=== PATIENT | male | born 1980 | race Caucasian/White ===

== ENCOUNTER 2021-01-04 12:03 | Emergency (ER) | payer BC, MEDICAID, SELFPAY ==
[2021-01-04 13:30] VITALS: BP 149/97; PULSE 93; RESP 20; TEMP 36.4; O2SAT 97; BMI 35.6
--- NOTE | 2021-01-04 14:55 | W.ED.FALL ---
HPI - Fall General: Chief Complaint: Fall Stated Complaint: FALL/R HIP PAIN & ARM PAIN Time Seen by Provider: 01/04/21 12:41 History of Present Illness: HPI Narrative: Patient is a 40-year-old male comes to the ED after having a fall. Patient says just prior to arrival he was checking out a property and was standing on their deck which was approximately 2 to 3 feet above the ground. Some wood on deck broke and patient fell through. Denies any head trauma or loss of consciousness. After fall he was having pain in his right hip, right ankle and left elbow. He has a superficial abrasion to left elbow as well. He rates the pain currently a 10 out of 10. Patient is up-to-date on his tetanus. Associated symptoms-after fall: Denies abdominal pain, chest pain, headache(s), hematuria or neck pain Review of Systems Const: Denies: fever(s), chills or fatigue Eyes: Denies: change in vision or eye discomfort ENMT: Denies: throat pain, odynophagia, nasal discharge or nasal congestion Card: Denies: chest pain, palpitations, edema, swelling of feet/ankles, dyspnea on exertion or orthopnea Resp: Denies: dyspnea, productive cough or non-productive cough GI: Denies: abdominal pain, nausea, vomiting, diarrhea, constipation or hematochezia : Denies: flank pain, difficulty urinating, dysuria or hematuria Musc: Reports: extremity pain (left elbow, right hip and right ankle); Denies: neck pain, back pain or extremity swelling Skin/Breast: Reports: new lesions (abrasion to left elbow); Denies: rash Neuro: Denies: headache(s), numbness in extremities or weakness in extremities Physical Exam Const: COMMON NORMALS: no acute distress, patient oriented x3 and alert GENERAL APPEARANCE: cooperative and comfortable HENMT: COMMON NORMALS: normocephalic HEAD & SCALP: normocephalic MOUTH: Normal oral and palatal mucosa present THROAT: posterior oropharynx normal and uvula midline Neck/C-Spine: COMMON NORMALS: supple GENERAL: Yes normal visual inspection Resp: COMMON NORMALS: normal respiratory effort, No retractions, No use of accessory muscles and clear to auscultation bilaterally AUSCULTATION: clear to auscultation bilaterally Cardio: COMMON NORMALS: regular rate, regular rhythm, S1 normal heart sound present, S2 normal heart sound present, No gallops present (Cardio), No clicks present (Cardio), No murmurs present (Cardio) and Peripheral pulses 2+ throughout RATE: regular rate RHYTHM: regular rhythm HEART SOUNDS: S1 normal heart sound present and S2 normal heart sound present PERIPHERAL PULSES: Peripheral pulses 2+ throughout GI: COMMON NORMALS: Normal to inspection, nondistended, normoactive bowel sounds present, Soft to palpation, non-tender and no masses PALPATION: Yes Soft to palpation : COMMON NORMALS: Yes no CVA tenderness BLADDER/KIDNEY EXAM: Yes no CVA tenderness Back/Pelvis: COMMON NORMALS: no CVA tenderness Extremity: COMMON NORMALS: normal to inspection and full ROM OTHER: Patient able to ambulate normally and had no limp. Neuro: COMMON NORMALS: patient oriented x3 and moves all extremities SENSORIUM/ORIENTATION: Yes alert Skin: NARRATIVE SKIN EXAM: Superficial abrasion to left elbow approximately 0.5 cm in size. GENERAL SKIN EXAM: dry skin Course Vital Signs: Vital signs: Vital Signs Temperature 97.6 F 01/04/21 13:30 Pulse Rate 67 01/04/21 17:03 Respiratory Rate 18 01/04/21 17:03 Blood Pressure 148/74 01/04/21 17:03 Pulse Oximetry 98 01/04/21 17:03 MDM - Fall MDM Narrative: Medical decision making narrative: Patient is a 40-year-old with left elbow pain, right hip and ankle pain after a fall. denied any head trauma or LOC. vitals stalbe and exam was benign. xrays of left elbow, right hip and right ankle showed no acute fractures or findings. I discussed with pt that I will send pt home with celebrex for pain and would not d/c with narcotic pain med. Pt was upset that I would not send him home with a narcotic pain med. He told me he will just come back tomorrow to get a different provider to help him get better pain meds. I reiterated w/ pt that either meloxicam, ibuprofen or celebrex is the only pain med he will receive a prescriptioin for today. pt was agitated at discharge, but left without causing any scene. Imaging Data^: Xray Ortho: Attestation: I personally reviewed and interpreted this imaging study as follows: Radiologist's impression: [id number] [facility] [place], [place] [address]RLos ReportSigned Patient: Lior Miller #: [id number]: 1980Acct#:[id number]/Sex: 40 / MADM Date: 01/04/21Loc: ERRoom/Bed:Attending Dr: Ordering Provider/Ordering MD: Sky Patten Date of Service: 01/04/21 Procedure(s): XR ankle RT min 3V* [id number] Accession Number(s): [id number] Report Number: [id number] PROCEDURE INFORMATION: Exam: XR Right Ankle Exam date and time: 01/04/2021 3:00 PM Age: 40 years old Clinical indication: Injury or trauma; Fall; Blunt trauma; Ankle; Right; Additional info: Fall injury with ankle pain TECHNIQUE: Imaging protocol: XR Right ankle. Views: 3 or more views. COMPARISON: No relevant prior studies available. FINDINGS: Bones/joints: Osseous structures are intact. No evidence of fracture. Moderate sized enthesophyte noted at the Achilles insertion. Soft tissues: Normal. XR/XR ankle RT min 3V* [id number] IMPRESSION: No acute findings. Radiation Dose CTDIVOL = (mGy): DLP = (mGy-cm) Dictated By:Navid Khalil DOSigned By:Navid Khalil DOSigned Date/Time:01/04/21 1700DD/ [id number] [facility] [place], [place] [address]AVpw ReportSigned Patient: Lior Miller #: [id number]: 1980Acct#:[id number]/Sex: 40 / MADM Date: 01/04/21Loc: ERRoom/Bed:Attending Dr: Ordering Provider/Ordering MD: Sky Patten Date of Service: 01/04/21 Procedure(s): XR elbow LT min 3V* [id number] Accession Number(s): [id number] Report Number: [id number] PROCEDURE INFORMATION: Exam: XR Left Elbow Exam date and time: 01/04/2021 3:00 PM Age: 40 years old Clinical indication: Injury or trauma; Fall; Blunt trauma (contusions or hematomas); Elbow; Left; Additional info: Fall injury with elbow pain TECHNIQUE: Imaging protocol: XR Left elbow. Views: 3 or more views. COMPARISON: No relevant prior studies available. FINDINGS: Bones/joints: Osseous structures are intact. No evidence of fracture or dislocation. Soft tissues: Normal. XR/XR elbow LT min 3V* [id number] IMPRESSION: No acute findings. Radiation Dose CTDIVOL = (mGy): DLP = (mGy-cm) Dictated By:Navid Khalil DOSigned By:Navid Khalil DOSigned Date/Time:01/04/21 1657DD/ [address] [employer] [address]FIyn ReportSigned Patient: Lior Miller RUnit #: [id number]: [id number]#:[id number]/Sex: 40 / MADM Date: 01/04/21Loc: ERRoom/Bed:Attending Dr: Ordering Provider/Ordering MD: Sky Patten Date of Service: 01/04/21 Procedure(s): XR hip RT 2-3V wo/w pel* [id number] Accession Number(s): [id number] Report Number: [id number] PROCEDURE INFORMATION: Exam: XR Right Hip Exam date and time: 01/04/2021 3:00 PM Age: 40 years old Clinical indication: Injury or trauma; Fall; Blunt trauma (contusions or hematomas); Right; Hip; Additional info: Fall injury with hip pain TECHNIQUE: Imaging protocol: XR Right hip. Views: 2 or 3 views hip with pelvis when performed. COMPARISON: CT abdomen pelvis w con* [id number] 12/20/2014 2:35 PM FINDINGS: Bones/joints: Unremarkable. No acute fracture. Soft tissues: Unremarkable. XR/XR hip RT 2-3V wo/w pel* [id number] IMPRESSION: No acute findings. Radiation Dose CTDIVOL = (mGy): DLP = (mGy-cm) Dictated By:Navid Khalil DOSigned By:Navid Khalil DOSigned Date/Time:01/04/21 1656DD/ 1500 Discharge Plan Discharge Patient Disposition: Home Clinical Impression: Hip pain, right Abrasion of elbow, left Qualifiers: Encounter type: initial encounter Qualified Code(s): S50.312A - Abrasion of left elbow, initial encounter Ankle pain, right Qualifiers: Chronicity: acute Qualified Code(s): M25.571 - Pain in right ankle and joints of right foot Condition: Stable Prescriptions: New Celebrex 100 mg capsule 100 mg PO BID PRN (Reason: pain) Qty: 20 RF: 0 Discharge Orders: Discharge ED (Routine); Ordered 01/04/21 Ordered By: Sky Patten Referrals: Yolanda Rodriguez DO [Primary Care Provider] - Discharge Diet: Regular Discharge Activity: Increase activity as tolerated Activity Restrictions/Additional Instructions: Follow-up with medical provider as directed in 7 to 10 days for reevaluation. Take medications as prescribed. Return to the ER or your medical provider if condition worsens. Please read and understand discharge instructions. Thank you for choosing [facility] for your healthcare needs today. Please realize this is an emergency room and that we are providing you with a medical screening exam and this may not be complete and all inclusive of all the testing and or work up that you may need to determine your ailment or severity of your illness. It is very important that you follow up as instructed or that you return to the Emergency Department should you have concerns or if your condition changes or worsens in any way. 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
--- NOTE | 2021-01-04 15:00 | XRR_ITS ---
PROCEDURE INFORMATION: Exam: XR Right Hip Exam date and time: 01/04/2021 3:00 PM Age: 40 years old Clinical indication: Injury or trauma; Fall; Blunt trauma (contusions or hematomas); Right; Hip; Additional info: Fall injury with hip pain TECHNIQUE: Imaging protocol: XR Right hip. Views: 2 or 3 views hip with pelvis when performed. COMPARISON: CT abdomen pelvis w con* [id number] 12/20/2014 2:35 PM FINDINGS: Bones/joints: Unremarkable. No acute fracture. Soft tissues: Unremarkable. XR/XR hip RT 2-3V wo/w pel* [id number] IMPRESSION: No acute findings. Radiation Dose CTDIVOL = (mGy): DLP = (mGy-cm)
--- NOTE | 2021-01-04 15:00 | XRR_ITS ---
PROCEDURE INFORMATION: Exam: XR Left Elbow Exam date and time: 01/04/2021 3:00 PM Age: 40 years old Clinical indication: Injury or trauma; Fall; Blunt trauma (contusions or hematomas); Elbow; Left; Additional info: Fall injury with elbow pain TECHNIQUE: Imaging protocol: XR Left elbow. Views: 3 or more views. COMPARISON: No relevant prior studies available. FINDINGS: Bones/joints: Osseous structures are intact. No evidence of fracture or dislocation. Soft tissues: Normal. XR/XR elbow LT min 3V* [id number] IMPRESSION: No acute findings. Radiation Dose CTDIVOL = (mGy): DLP = (mGy-cm)
--- NOTE | 2021-01-04 15:00 | XRR_ITS ---
PROCEDURE INFORMATION: Exam: XR Right Ankle Exam date and time: 01/04/2021 3:00 PM Age: 40 years old Clinical indication: Injury or trauma; Fall; Blunt trauma; Ankle; Right; Additional info: Fall injury with ankle pain TECHNIQUE: Imaging protocol: XR Right ankle. Views: 3 or more views. COMPARISON: No relevant prior studies available. FINDINGS: Bones/joints: Osseous structures are intact. No evidence of fracture. Moderate sized enthesophyte noted at the Achilles insertion. Soft tissues: Normal. XR/XR ankle RT min 3V* [id number] IMPRESSION: No acute findings. Radiation Dose CTDIVOL = (mGy): DLP = (mGy-cm)
[2021-01-04] MEDS: HYDROcodone-acetaminophen 7.5-325 mg Tablet 1 TAB PO (15:19)
[2021-01-04 17:03] VITALS: BP 148/74; PULSE 67; RESP 18; O2SAT 98
== END 2021-01-04 16:40 | disposition home or self-care (01) ==
PROVIDERS: Emergency Provider Physician Assistant; PCP Family Medicine
DX: M25.551 Pain in right hip (principal); M25.571 Pain in right ankle and joints of right foot; M79.671 Pain in right foot; M25.522 Pain in left elbow; S50.312A Abrasion of left elbow, initial encounter; W13.0XXA Fall from, out of or through balcony, initial encounter
CPT/HCPCS: 73080; 73502; 73610; 99283

== ENCOUNTER → 2021-03-18 14:21 | Outpatient (BNVA) | payer BC, MEDICAID, SELFPAY | PROVIDERS: PCP Family Medicine; Visit Provider Nurse Practitioner Family | DX: Z20.822 Contact with and (suspected) exposure to COVID-19 (principal) | CPT/HCPCS: 87635 ==

== ENCOUNTER → 2021-03-24 09:52 | Outpatient (BNVA) | payer BC, MEDICAID, SELFPAY | PROVIDERS: PCP Family Medicine; Referring Provider Family Medicine; Visit Provider Anesthesiology Pain Medicine | DX: M47.816 Spondylosis without myelopathy or radiculopathy, lumbar region (principal); M48.061 Spinal stenosis, lumbar region without neurogenic claudication; M48.062 Spinal stenosis, lumbar region with neurogenic claudication; M79.604 Pain in right leg; M79.605 Pain in left leg; F17.210 Nicotine dependence, cigarettes, uncomplicated; Z79.891 Long term (current) use of opiate analgesic | CPT/HCPCS: 99204 ==

== ENCOUNTER → 2021-06-10 10:55 | Outpatient (BNVA) | payer BC, MEDICAID, SELFPAY | PROVIDERS: PCP Family Medicine; Visit Provider Anesthesiology Pain Medicine | DX: M48.062 Spinal stenosis, lumbar region with neurogenic claudication (principal); M47.816 Spondylosis without myelopathy or radiculopathy, lumbar region; M48.061 Spinal stenosis, lumbar region without neurogenic claudication; F17.210 Nicotine dependence, cigarettes, uncomplicated | CPT/HCPCS: 99214 ==

== ENCOUNTER 2021-06-23 07:31 | Emergency (ER) | payer BC, MEDICAID, SELFPAY ==
[2021-06-23 07:37] VITALS: BP 134/96; PULSE 92; RESP 20; O2SAT 94; BMI 30.2
[2021-06-23 07:48] VITALS: TEMP 36.6
--- NOTE | 2021-06-23 08:03 | ED_ITS ---
HPI - Abdominal Pain General: Chief Complaint: Abdominal Pain Stated Complaint: severe abdominal pain/vomiting bile Time Seen by Provider: 06/23/21 07:40 Source: patient Mode of arrival: ambulatory Limitations: no limitations History of Present Illness: 40-year-old male presents emergency room with comp laints of abdominal discomfort most that seems to be epigastric goes up into his left upper quadrant, this is been a intermittent problem but is acutely worse this morning. He states that this also radiates down into the testicles. He has had testicular pain from he says he is actually scheduled for a testicular ultrasound tomorrow. In addition to that he has chronic back pain and is supposed to be seeing the pain clinic later this week for potential epidural for his low back. He is on Dilaudid regularly and a fentanyl patch for lumbar stenosis per his report. He denies any chest pain denies any shortness of breath. This morning he went to work seem to be doing well and then got some a bdominal discomfort and had a large bowel movement which seem normal there is no hematochezia or melena was not acholic. After this he began having worsening abdominal discomfort with nausea and vomiting worsening testicular pain. He has had trouble with his stomach in the past. He was diagnosed with diabetes over 10 years ago. He states he has had some foul eructations last few days. He denies any hematemesis. Has no history of coronary artery disease. No history of nephrolithiasis. MD elicited complaint: abdominal pain Pertinent past history: other (Diabetes mellitus) Onset (ago): hour(s) Location: Epigastric Severity: moderate Quality: cramping Radiation: LUQ and RUQ Migration to: other (Bilaterally into the testicles) Exacerbating factors: bowel movement Relieving factors: nothing Associated Symptoms: Reports GI cramping, nausea and poor appetite; Denies anorexia, belching, bloating, change in bowel habits, change in stool character, chills, coffee ground emesis, constipation, diarrhea, dyspepsia, dysuria, excessive flatus, fever(s), heartburn, hematochezia, hematuria, hematemesis, fecal incontinence, loose stools, melena, syncope and vomiting Review of Systems Const: Denies: fever(s) or chills ENMT: Denies: throat pain, ear or mastoid pain, nasal discharge or nasal congestion Card: Denies: syncope Resp: Denies: dyspnea, productive cough or non-productive cough GI: Reports: nausea and GI cramping; Denies: vomiting, hematemesis, coffee ground emesis, heartburn, diarrhea, constipation, bloating, belching, excessive flatus, fecal incontinence, change in bowel habits, change in stool character, hematochezia or melena : Denies: dysuria or hematuria Skin/Breast: Denies: rash or pruritus PFSH ED PFSH: Medical History (Updated 06/23/21 @ 09:35 by Alexandr Ma DO) Diabetes Facet arthropathy, lumbar Headache Hx of migraines Lumbar stenosis Lumbar stenosis with neurogenic claudication Sleep apnea Family History Other Cancer Diabetes Stroke Social History Smoking and tobacco status: current every day smoker (2 ciagarettes a day) Physical Exam Const: COMMON NORMALS: no acute distress GENERAL APPEARANCE: cooperative and comfortable ORIENTATION/CONSCIOUSNESS: Yes awake, Yes oriented to person, Yes oriented to place and Yes oriented to time HENMT: COMMON NORMALS: normocephalic, atraumatic and hearing grossly normal bilaterally HEAD & SCALP: normocephalic and atraumatic Neck/C-Spine: COMMON NORMALS: no JVD Resp: COMMON NORMALS: normal respiratory effort, No retractions, No use of accessory muscles and clear to auscultation bilaterally AUSCULTATION: clear to auscultation bilaterally Cardio: COMMON NORMALS: no JVD, regular rate, regular rhythm and No murmurs present (Cardio) RATE: regular rate RHYTHM: regular rhythm GI: COMMON NORMALS: Soft to palpation and No hepatosplenomegaly present AUSCULTATION: Yes normoactive bowel sounds PALPATION: Yes Soft to palpation, No Tenderness to palpation present (GI), No Guarding due to palpation present (GI) and Yes No hepatosplenomegaly present Extremity: COMMON NORMALS: normal to inspection, capillary refill normal, no clubbing, cyanosis or edema, no calf tenderness and no pedal edema Neuro: SENSORIUM/ORIENTATION: Yes oriented to person, Yes oriented to place and Yes oriented to time Skin: COMMON NORMALS: no rashes or lesions noted GENERAL SKIN EXAM: no rashes or lesions noted Course Vital Signs: Vital signs: Vital Signs Temperature 97.8 F 06/23/21 07:48 Pulse Rate 81 06/23/21 09:49 Respiratory Rate 16 06/23/21 09:49 Blood Pressure 139/92 06/23/21 09:49 Pulse Oximetry 94 06/23/21 09:49 MDM - Abdominal Pain Medical Decision Making Labs and imaging reviewed. Patient suspected to have gastroparesis probably brought on by his diabetes and exacerbated by his use of chronic narcotics. We will start him on a PPI and start Reglan every 6 hours. Follow-up with primary care doc within the next week return if has any worsening or change symptoms. Repeat exam exam is benign. Medical Records I reviewed the patient's medical records. Lab Data I reviewed the patient's lab results. : 06/23/21 08:24 06/23/21 08:24 Labs/Radiology: Radiology Impressions Abdomen/Pelvis CT 06/23/21 08:05 IMPRESSION: 1. Hepatosplenomegaly with probable hepatic steatosis. 2. Degenerative changes in the lumbar spine with moderate to severe central spinal canal narrowing at a few levels. Consider MRI to further assess if clinically warranted. Laboratory Results WBC 8.0 10^3/uL (4.0-10.0) 06/23/21 08:24 RBC 5.36 10^6/uL (4.1-5.3) H 06/23/21 08:24 Hgb 15.4 g/dL (11.7-16.6) 06/23/21 08:24 Hct 46.3 % (42.0-52.0) 06/23/21 08:24 MCV 86.4 fl (80-94) 06/23/21 08:24 MCH 28.7 pg (28.0-34.0) 06/23/21 08:24 MCHC 33.3 g/dL (30.0-36.0) 06/23/21 08:24 RDW 12.6 % (12.1-15.1) 06/23/21 08:24 Plt Count 219 10^3/cmm (130-400) 06/23/21 08:24 MPV 9.1 fL (7.4-10.4) 06/23/21 08:24 Neut % (Auto) 79.1 % 06/23/21 08:24 Lymph % (Auto) 15.0 % 06/23/21 08:24 [place] % (Auto) 4.5 % 06/23/21 08:24 Eos % (Auto) 0.6 % 06/23/21 08:24 Baso % (Auto) 0.4 % 06/23/21 08:24 Neut # (Auto) 6.32 10^3/uL (1.8-7.7) 06/23/21 08:24 Lymph # (Auto) 1.2 10^3/uL (0.8-4.8) 06/23/21 08:24 [place] # (Auto) 0.4 10^3/uL (0.2-0.9) 06/23/21 08:24 Eos # (Auto) 0.1 10^3/uL (0.0-0.8) 06/23/21 08:24 Baso # (Auto) 0.0 10^3/uL (0.0-0.1) 06/23/21 08:24 Nucleated RBC % (auto) 0 % 06/23/21 08:24 Nucleated RBCs # 0.0 /100WBC 06/23/21 08:24 Sodium 137 mmol/L (136-145) 06/23/21 08:24 Potassium 3.8 mmol/L (3.5-5.1) 06/23/21 08:24 Chloride 104 mmol/L (98-107) 06/23/21 08:24 Carbon Dioxide 22 mmol/L (22-29) 06/23/21 08:24 Anion Gap 14.8 (5-19) 06/23/21 08:24 BUN 16 mg/dL (6-20) 06/23/21 08:24 Creatinine 0.6 mg/dL (0.7-1.2) L 06/23/21 08:24 GFR Calculation 150.0 mL/min (90-130) H 06/23/21 08:24 Glucose 244 mg/dL (65-115) H 06/23/21 08:24 Calculated Osmolality 293 mOsm/kg (285-295) 06/23/21 08:24 Calcium 9.0 mg/dL (8.5-10.5) 06/23/21 08:24 Total Bilirubin 0.5 mg/dL (0.15-1.2) 06/23/21 08:24 AST 16 U/L (0-40) 06/23/21 08:24 ALT 23 U/L (0-41) 06/23/21 08:24 Alkaline Phosphatase 65 IU/L (40-130) 06/23/21 08:24 Total Protein 7.3 g/dL (6.6-8.7) 06/23/21 08:24 Albumin 4.1 g/dL (3.5-5.2) 06/23/21 08:24 Globulin 3.2 g/dL (1.3-4.6) 06/23/21 08:24 Lipase 28 U/L (13-60) 06/23/21 08:24 Urine Color Yellow (Yellow) 06/23/21 08:13 Urine Appearance Clear (CLEAR) 06/23/21 08:13 Urine pH 5 (5-7) 06/23/21 08:13 Ur Specific [place] 1.020 (1.005-1.030) 06/23/21 08:13 Urine Protein Neg (Negative) 06/23/21 08:13 Urine Glucose (UA) 4+ (Normal) H 06/23/21 08:13 Urine Ketones Negative (Negative) 06/23/21 08:13 Urine Blood Neg (Negative) 06/23/21 08:13 Urine Nitrate Negative (Negative) 06/23/21 08:13 Urine Bilirubin Neg (Negative) 06/23/21 08:13 Urine Urobilinogen Norm mg/dL (Negative) 06/23/21 08:13 Ur Leukocyte Esterase Negative (Negative) 06/23/21 08:13 Discharge Plan Discharge Patient Disposition: Home Clinical Impression: Diabetic gastroparesis, Diabetes mellitus Condition: Stable Prescriptions: New Reglan 10 mg tablet 10 mg PO Q6H 14 Days Qty: 56 0RF pantoprazole 40 mg tablet,delayed release (DR/EC) 40 mg PO DAILY 60 Days Qty: 60 0RF No Action Farxiga 10 mg tablet 10 mg PO QAM 0RF celecoxib 200 mg capsule 200 mg PO BID 0RF fentanyl 25 mcg/hr Patch 72 Hour 1 patch TRANSDERMAL Q72H 0RF hydromorphone 4 mg Tablet 4 mg PO BID PRN (Reason: Pain) 0RF Claritin 10 mg Tablet 10 mg PO DAILY PRN (Reason: Allergy Symptoms) 0RF Trulicity 1.5 mg/0.5 mL pen injector 1.5 mg SUBCUT Q7D 0RF Rx Instructions: on baclofen 10 mg tablet 10 mg PO TID PRN (Reason: spasm) 0RF Flonase 50 mcg/actuation Parthenon,Suspension 2 spray INTRANASAL DAILY PRN (Reason: Allergy Symptoms) 0RF Rx Instructions: administer into each nostril Discharge Orders: Discharge ED (Routine); Ordered 06/23/21 Ordered By: Alexandr Ma Referrals: Yolanda Rodriguez DO [Primary Care Provider] - Discharge Diet: Usual diet Discharge Activity: Resume usual activity Patient Instructions: Opioid Safety Activity Restrictions/Additional Instructions: Follow-up with your primary care doctor within the next 7 to 14 days. 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
--- NOTE | 2021-06-23 08:05 | CTR_ITS ---
PROCEDURE INFORMATION: Exam: CT Abdomen And Pelvis With Contrast Exam date and time: 06/23/2021 8:41 AM Age: 40 years old Clinical indication: Lower abdominal pain. TECHNIQUE: Imaging protocol: Computed tomography of the abdomen and pelvis with contrast. Radiation optimization: All CT scans at this facility use at least one of these dose optimization techniques: automated exposure control; mA and/or kV adjustment per patient size (includes targeted exams where dose is matched to clinical indication); or iterative reconstruction. Contrast material: OMNI 300; Contrast volume: 95 ml; Contrast route: INTRAVENOUS (IV); COMPARISON: CT abdomen pelvis w con* [id number] 12/20/2014 2:35 PM RADIATION DOSE METRICS: Total DLP (mGy-cm): 2404.37 FINDINGS: Lungs: Dependent microatelectasis is noted at the lung bases. No pericardial effusion. No hiatal hernia. Liver: The liver is enlarged measuring 22 cm. There is probable hepatic steatosis. Gallbladder and bile ducts: The gallbladder is unremarkable. Pancreas: The pancreas is unremarkable. Spleen: The spleen is enlarged measuring 15 cm. Adrenal glands: The adrenal glands are unremarkable. Kidneys and ureters: A subcentimeter right renal hypodensity is too small to accurately characterize and requires no follow-up. Stomach and bowel: The stomach and small bowel are unremarkable. The colon is unremarkable. Appendix: The appendix is unremarkable. Intraperitoneal space: No free intraperitoneal air is seen. Arteries: No abdominal aortic aneurysm. Lymph nodes: No retroperitoneal lymphadenopathy. Urinary bladder: The bladder is unremarkable. Reproductive: The prostate measures 4.0 x 4.5 cm. Bones/joints: Probable subtrochanteric intraosseous lipoma on the left. No acute fracture is identified. Degenerative changes in the lumbar spine with moderate to severe central spinal canal narrowing at a few levels. Consider MRI to further assess if clinically warranted. Soft tissues: Small fat containing umbilical hernia. CT/CT abdomen pelvis w con* [id number] IMPRESSION: 1. Hepatosplenomegaly with probable hepatic steatosis. 2. Degenerative changes in the lumbar spine with moderate to severe central spinal canal narrowing at a few levels. Consider MRI to further assess if clinically warranted.
--- NOTE | 2021-06-23 08:05 | ECG_ITS ---
[facility] Test Date: 2021-06-23 Pat Name: Lior Miller Department: Room: Gender: Male Master Ship: : 1980 Requested By: Alexandr Mayorga Order Number: [id number] Rima MD: Bailey Rebollar M.D. Measurements Intervals [place] Rate: 84 P: 17 GA: 143 QRS: 17 QRSD: 114 T: 5 QT: 366 QTc: 435 Interpretive Statements SINUS RHYTHM INCOMPLETE RIGHT BUNDLE BRANCH BLOCK [90+ ms QRS DURATION, TERMINAL R IN V1/V2, 40+ ms S IN I/aVL/V4/V5/V6] Compared to ECG 10/16/2014 18:18:33 Incomplete right bundle-branch block now present T-wave abnormality no longer present Electronically Signed On 06-24-2021 7:28:34 CDT by Bailey Rebollar M.D. [email or web address]
[2021-06-23 08:18] LABS: Add Urine Microscopic? NO; Charge for UA Resulting for Rev
[2021-06-23] MEDS: lactated ringers 1,000 ML 999 ML IV (08:20)
[2021-06-23] MEDS: ondansetron 2 mg/ML SDV 2 mL 4 MG IVP (08:20)
[2021-06-23 08:24] LABS: Bilirubin Urine Neg (Negative); Blood Urine Neg (Negative); Glucose Urine UA 4+ (Normal); Ketones Urine Negative (Negative); Leukocyte Esterase Urine Negative (Negative); Nitrate Urine Negative (Negative); Protein Urine Neg (Negative); Urine Appearance Clear (CLEAR); Urine Color Yellow (Yellow); Urobilinogen Urine Norm (Negative); pH Urine 5 (5-7)
[2021-06-23 08:34] LABS: Basophils % 0.4 %; Eosinophils # 0.1 10^3/uL (0.0-0.8); Eosinophils % 0.6 %; Hematocrit 46.3 % (42.0-52.0); Hemoglobin 15.4 g/dL (11.7-16.6); Lymphocytes # 1.2 10^3/uL (0.8-4.8); Mean Corpuscular HGB Conc 33.3 g/dL (30.0-36.0); Mean Corpuscular Hemoglobin 28.7 pg (28.0-34.0); Mean Corpuscular Volume 86.4 fl (80-94); Mean Platelet Volume 9.1 fL (7.4-10.4); Monocytes # 0.4 10^3/uL (0.2-0.9); Monocytes % 4.5 %; Neutrophils # 6.32 10^3/uL (1.8-7.7); Neutrophils % 79.1 %; Nucleated Red Blood Cells % 0 %; Platelet Count 219 10^3/cmm (130-400); Red Blood Count 5.36 10^6/uL (4.1-5.3); Red Cell Distribution Width 12.6 % (12.1-15.1)
[2021-06-23] MEDS: iohexol 300 mg/mL 100 mL Btl IV (08:41)
[2021-06-23 08:54] LABS: Alanine Aminotransferase 23 U/L (0-41); Albumin Level 4.1 g/dL (3.5-5.2); Alkaline Phosphatase 65 IU/L (40-130); Anion Gap 14.8 (5-19); Aspartate Amino Transferase 16 U/L (0-40); Blood Urea Nitrogen 16 mg/dL (6-20); Carbon Dioxide 22 mmol/L (22-29); Chloride 104 mmol/L (98-107); Globulin 3.2 g/dL (1.3-4.6); Glucose 244 mg/dL (65-115); Lipase 28 U/L (13-60); Osmolality Calculated 293 mOsm/kg (285-295); Potassium 3.8 mmol/L (3.5-5.1); Sodium 137 mmol/L (136-145); Total Bilirubin 0.5 mg/dL (0.15-1.2); Total Protein 7.3 g/dL (6.6-8.7)
[2021-06-23 09:49] VITALS: BP 139/92; PULSE 81; RESP 16; O2SAT 94
== END 2021-06-23 09:53 | disposition home or self-care (01) ==
PROVIDERS: Emergency Provider Family Medicine; PCP Family Medicine
DX: E11.43 Type 2 diabetes mellitus with diabetic autonomic (poly)neuropathy (principal); K31.84 Gastroparesis; R11.0 Nausea; F17.210 Nicotine dependence, cigarettes, uncomplicated; Z79.899 Other long term (current) drug therapy; Z79.891 Long term (current) use of opiate analgesic
CPT/HCPCS: 74177; 80053; 81003; 83690; 85025; 93005; 96361; 96374; 99284; J2405; Q9967

== ENCOUNTER → 2021-07-08 12:48 | Outpatient (BNVA) | payer BC, MEDICAID, SELFPAY | PROVIDERS: PCP Family Medicine; Visit Provider Anesthesiology Pain Medicine | DX: F17.210 Nicotine dependence, cigarettes, uncomplicated (principal); M54.16 Radiculopathy, lumbar region | CPT/HCPCS: 62323; J1040; J3490 ==

== ENCOUNTER 2023-08-27 19:43 | Emergency (ER) | payer SELFPAY ==
--- NOTE | 2023-08-27 19:42 | ECG_ITS ---
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 Measurements Intervals Stanley Rate: 152 P: 0 GA: 0 QRS: -4 QRSD: 105 T: 63 QT: 307 QTc: 489 Interpretive Statements ATRIAL FLUTTER/TACHYCARDIA WITH RAPID VENTRICULAR RESPONSE INCOMPLETE RIGHT BUNDLE BRANCH BLOCK [90+ ms QRS DURATION, TERMINAL R IN V1/V2, 40+ ms S IN I/aVL/V4/V5/V6] NONSPECIFIC ST & T-WAVE ABNORMALITY CRITICAL TEST RESULT Compared to ECG 06/23/2021 08:11:09 T-wave abnormality now present Sinus rhythm no longer present Electronically Signed On 08-28-2023 8:10:09 CDT by Eduardo Andrew M.D. [id number] f
[2023-08-27 19:49] VITALS: BP 199/101; PULSE 153; RESP 18; TEMP 37.7; O2SAT 91
[2023-08-27 20:00] VITALS: BP 200/94; PULSE 141; RESP 16
--- NOTE | 2023-08-27 20:07 | PC.NURSE ---
Wearing gloves- fentanyl patch picked up and disposed of with witness Radha MAGAÑA.
--- NOTE | 2023-08-27 20:29 | ED_ITS ---
HPI - Chest Pain General: Chief Complaint: Chest Pain Stated Complaint: Chest pain Time Seen by Provider: 08/27/23 19:56 History of Present Illness: 42-year-old male presents emerged part w ith his present chief complaint of opiate withdrawal patient endorses he has been snorting his medications including oxycodone provided by his primary care doctor due to his chronic back problems. Patient apparently has had chronic pain issues with his back he reports he is lying on fentanyl patch as well as oxycodone as well as hydrocodone he reports not taking them as prescribed which most recently crushed up the fat normal and/or oxycodone and snuff that a couple of days ago patient does not endorse any other drugs besides THC he presents today as he is demanding morphine for his pain control or he will upon direct questioning patient does not report any homicidal suicidal thoughts or ideations. Patient does not report any known history of underlying cardiac issues or any other associated issues. Per the patient's just prior to arrival patient took several Gummies of THC which invoked anxiety reaction and him which prompted him to come to the ER for further assessment and management Associated symptoms: Reports fever(s) and palpitations; Deny abdominal pain, dyspnea, nausea or vomiting Review of Systems General: Reports: 10 or more systems reviewed and unremarkable except in HPI and below Const: Reports: fever(s), chills, body aches, change in appetite, fatigue and malaise Eyes: Denies: change in vision or blurry vision Card: Reports: chest pain and palpitations Resp: Denies: dyspnea or productive cough GI: Denies: abdominal pain, nausea or vomiting : Denies: flank pain Musc: Denies: extremity pain or extremity swelling Skin/Breast: Denies: rash or pruritus Neuro: Denies: headache(s) Psych: Reports: anxiety, depression, mood swings and panic attacks Brian/Lymph: Denies: easy bleeding All/Imm: Denies: urticaria, throat swelling or facial swelling PFSH ED PFSH: Medical History Diabetes Hx of migraines Sleep apnea Headache Lumbar stenosis with neurogenic claudication Lumbar stenosis Facet arthropathy, lumbar Family History Other Cancer Diabetes Stroke Social History Smoking and tobacco/nicotine status: current every day tobacco/nicotine user (2 ciagarettes a day) Physical Exam Narrative: EXAM NARRATIVE: On exam patient appears quite anxious and is tachycardic Const: COMMON NORMALS: no acute distress, patient oriented x3 and healthy appearing HENMT: COMMON NORMALS: normocephalic and atraumatic HEAD & SCALP: normocephalic and atraumatic Eye: COMMON NORMALS: Equal, round and reactive pupils present and EOMs intact bilaterally PUPIL: Yes Equal, round and reactive pupils present Neck/C-Spine: COMMON NORMALS: full ROM, supple and no JVD Lymph: LYMPHATIC: no lymphadenopathy noted Chest: COMMONS NORMALS: normal inspection of the chest and normal palpation of entire chest wall Resp: COMMON NORMALS: normal respiratory effort, No retractions and clear to auscultation bilaterally EFFORT & INSPECTION: Yes able to speak in complete sentences and Yes symmetric chest movement AUSCULTATION: clear to auscultation bilaterally Cardio: COMMON NORMALS: no JVD and regular rate; negative for regular rhythm (Sinus tachycardia as well as questionable atrial flutter rate of 150 on mon) RATE: regular rate RHYTHM: abnormal rhythm (Sinus tachycardia as well as questionable atrial flutter rate of 150 on mon) GI: COMMON NORMALS: Normal to inspection, nondistended, normoactive bowel sounds present, Soft to palpation and non-tender INSPECTION: Yes normal to inspection PALPATION: Yes Soft to palpation : COMMON NORMALS: Yes no CVA tenderness BLADDER/KIDNEY EXAM: Yes no CVA tenderness Back/Pelvis: COMMON NORMALS: no CVA tenderness Extremity: COMMON NORMALS: normal to inspection and full ROM Neuro: COMMON NORMALS: patient oriented x3, CN's II-XII intact bilaterally, moves all extremities and no focal motor deficits Psych: COMMON NORMALS: mental status grossly normal, Normal thought process present, cooperative and normal affect THOUGHT PROCESS: Normal thought process present Skin: COMMON NORMALS: no rashes or lesions noted GENERAL SKIN EXAM: no rashes or lesions noted Course Vital Signs: Vital signs: Vital Signs Temperature 99.9 F H 08/27/23 19:49 Pulse Rate 153 H 08/27/23 19:49 Respiratory Rate 18 08/27/23 19:49 Blood Pressure 199/101 08/27/23 19:49 Pulse Oximetry 91 08/27/23 19:49 MDM - Chest Pain Medical Decision Making Spoke to the patient and present at length I declined providing the patient morphine as he reported he would not help his symptoms out I did offer him additional medications for his heart in particular as he was found to be in atrial flutter that he has declined I offered an IV as well as additional lab work as well as medications for his associated withdrawal symptoms. I also offered referral to psychiatry and therapy which the patient declined after speaking to the patient at length after refusing to provide him morphine the patient elected to leave the emergency room department to AGAINST MEDICAL ADVICE I did speak to the patient's at length in which that when the patient's anxiety wears off as he if he so chooses he can return to the ER for further evaluation and management patient was observed leaving the ER no obvious acute distress by nursing staff. No radiology studies performed this visit Discharge Plan Discharge Patient Disposition: Left Against Medical Advice Clinical Impression: Chest pain, Opiate withdrawal, Anxiety Condition: Stable Prescriptions: No Action Farxiga 10 mg tablet 10 mg PO QAM ibuprofen 200 mg tablet 200 mg PO Q6H PRN methylprednisolone acetate [Depo-Medrol] 80 mg/mL suspension 80 mg Infiltration ONCE Qty: 1 0RF bupivacaine (PF) 0.25 % (2.5 mg/mL) solution 2 ml Infiltration ONCE Qty: 1 0RF celecoxib 200 mg capsule 200 mg PO BID fentanyl 25 mcg/hr Patch 72 Hour 1 patch TRANSDERMAL Q72H hydromorphone 4 mg Tablet 4 mg PO BID PRN (Reason: Pain) Claritin 10 mg Tablet 10 mg PO DAILY PRN (Reason: Allergy Symptoms) Trulicity 1.5 mg/0.5 mL pen injector 1.5 mg SUBCUT Q7D Rx Instructions: on baclofen 10 mg tablet 10 mg PO TID PRN (Reason: spasm) Flonase 50 mcg/actuation [place],Suspension 2 spray INTRANASAL DAILY PRN (Reason: Allergy Symptoms) Rx Instructions: administer into each nostril Referrals: Yolanda Rodriguez DO [Primary Care Provider] - Coding Level of Care Code ED Cutting Machine Operator Helper for Addis Valente
--- NOTE | 2023-08-27 20:29 | PC.NURSE ---
PT UNCOOPERATIVE AND DEMANDING PAIN MEDICATION
== END 2023-08-27 20:19 | disposition left against medical advice (07) ==
PROVIDERS: Emergency Provider Emergency Medicine; PCP Family Medicine
DX: R07.9 Chest pain, unspecified (principal); F41.9 Anxiety disorder, unspecified; F11.23 Opioid dependence with withdrawal; Z79.85 Long-term (current) use of injectable non-insulin antidiabetic drugs; F17.210 Nicotine dependence, cigarettes, uncomplicated; E11.9 Type 2 diabetes mellitus without complications
CPT/HCPCS: 93005; 99283

== ENCOUNTER 2023-08-28 14:41 | Emergency (ER) | payer SELFPAY ==
[2023-08-28 14:46] VITALS: BP 147/85; PULSE 86; RESP 17; TEMP 37.1; O2SAT 96; BMI 29.0
--- NOTE | 2023-08-28 15:24 | ED_ITS ---
HPI - General Adult General: Chief complaint: General Medical Stated complaint: withdrawal, sweating, shaking, etc Time Seen by Provider: 08/28/23 14:51 Source: patient Mode of arrival: ambulatory Limitations: no limitations History of Present Illness: Patient is a 42-year-old male presenting to the emergency department complaining of withdrawal symptoms onset 2 days. Patient came to the emergency department yesterday as he was having a reported reaction to THC Gummies that he was taking for symptoms of irritability, restlessness, tremors, and anxiety. He states he has a longstanding history of opiate abuse, with his last opiate being yesterday. He currently is attempting to cold turkey stop taking opiates, and has appointment with his primary care for resources for weaning off of these op iates. He did leave AGAINST MEDICAL ADVICE yesterday, and arrives today stating that he just wants something for his symptoms that have been constant since yesterday. He is denying any GI symptoms, chest pain, breathing difficulties, or any other neurological symptoms. MD complaint: Withdrawal symptoms Onset (ago): day(s) Associated symptoms: Deny chest pain, dyspnea, headache(s), nausea, rash, palpitations or vomiting Treatments prior to arrival: none Review of Systems General: Reports: 10 or more systems reviewed and unremarkable except in HPI and below Const: Denies: fever(s), chills or fatigue Eyes: Denies: change in vision ENMT: Denies: throat pain, ear or mastoid pain or nasal discharge Card: Denies: chest pain, palpitations, swelling of feet/ankles or lightheadedness Resp: Denies: dyspnea, productive cough or wheezing GI: Denies: abdominal pain, nausea, vomiting, diarrhea or constipation : Denies: flank pain, difficulty urinating, dysuria or urinary frequency Musc: Denies: neck pain, back pain or joint pain Skin/Breast: Denies: rash Neuro: Reports: other (Tremors); Denies: headache(s), numbness in extremities or weakness in extremities Psych: Reports: anxiety, sleeping less and irritability PFSH ED PFSH: Medical History Diabetes Hx of migraines Sleep apnea Headache Lumbar stenosis with neurogenic claudication Lumbar stenosis Facet arthropathy, lumbar Family History Other Cancer Diabetes Stroke Social History Smoking and tobacco/nicotine status: current every day tobacco/nicotine user (2 ciagarettes a day) Physical Exam Const: COMMON NORMALS: average body habitus, patient oriented x3, no limitations and alert GENERAL APPEARANCE: cooperative and anxious ORIENTATION/CONSCIOUSNESS: Yes awake OTHER: Tremulous HENMT: COMMON NORMALS: normocephalic and atraumatic HEAD & SCALP: normocephalic and atraumatic Eye: COMMON NORMALS: Equal, round and reactive pupils present, EOMs intact bilaterally and conjunctivae normal CONJUNCTIVA: Yes conjunctivae normal PUPIL: Yes Equal, round and reactive pupils present Neck/C-Spine: COMMON NORMALS: full ROM Resp: COMMON NORMALS: normal respiratory effort, No retractions, No use of accessory muscles and clear to auscultation bilaterally AUSCULTATION: clear to auscultation bilaterally Cardio: COMMON NORMALS: regular rate, regular rhythm, S1 normal heart sound present, S2 normal heart sound present, No gallops present (Cardio), No clicks present (Cardio) and No murmurs present (Cardio) RATE: regular rate RHYTHM: regular rhythm HEART SOUNDS: S1 normal heart sound present and S2 normal heart sound present GI: COMMON NORMALS: Normal to inspection, nondistended, normoactive bowel sounds present, Soft to palpation and non-tender PALPATION: Yes Soft to palpation Extremity: COMMON NORMALS: normal to inspection, full ROM and capillary refill normal Neuro: COMMON NORMALS: patient oriented x3, CN's II-XII intact bilaterally, moves all extremities and no sensory deficits noted SENSORIUM/ORIENTATION: Yes alert SPEECH: speech normal GAIT: Yes Normal gait present MOTOR EXAM: 5/5 motor strength present throughout, Pronator motor function not present, no asterixis and Motor fasciculations not present Psych: COMMON NORMALS: mental status grossly normal and Normal thought process present THOUGHT PROCESS: Normal thought process present Skin: COMMON NORMALS: no rashes or lesions noted GENERAL SKIN EXAM: no rashes or lesions noted Course Vital Signs: Vital signs: Vital Signs Temperature 98.8 F 08/28/23 14:46 Pulse Rate 86 08/28/23 14:46 Respiratory Rate 17 08/28/23 14:46 Blood Pressure 147/85 06/22/24 14:46 Pulse Oximetry 96 08/28/23 14:46 Oxygen Delivery Me thod Room Air 08/28/23 14:46 MDM - General Adult Medical Decision Making Patient presented with requests for medication for his opiate withdrawal. Was seen yesterday in the emergency department but left AGAINST MEDICAL ADVICE. He has no new symptoms to report other than his irritability/restlessness/anxiety that he was having yesterday. He currently has appointment scheduled with primary care to discuss options for weaning off of opiates. Last opiate was yesterday morning. He is given 1 mg of Ativan p.o. here in the emergency department, and prescription is sent to pharmacy for him to take that will lead up to his appointment with primary care. He had no complaints of chest pain or neurological symptoms that would warrant lab testing or imaging at this time. I discussed this patient's care with supervising ED physician, Dr. Evangelista, who agrees with disposition of patient. Reasons to return were discussed with patient and family in the room. No radiology studies performed this visit Discharge Plan Discharge Patient Disposition: Home Clinical Impression: Opiate withdrawal Condition: Stable Prescriptions: New Ativan 1 mg tablet 1 mg PO Q6H Qty: 30 0RF No Action Farxiga 10 mg tablet 10 mg PO QAM ibuprofen 200 mg tablet 200 mg PO Q6H PRN methylprednisolone acetate [Depo-Medrol] 80 mg/mL suspension 80 mg Infiltration ONCE Qty: 1 0RF bupivacaine (PF) 0.25 % (2.5 mg/mL) solution 2 ml Infiltration ONCE Qty: 1 0RF celecoxib 200 mg capsule 200 mg PO BID fentanyl 25 mcg/hr Patch 72 Hour 1 patch TRANSDERMAL Q72H hydromorphone 4 mg Tablet 4 mg PO BID PRN (Reason: Pain) Claritin 10 mg Tablet 10 mg PO DAILY PRN (Reason: Allergy Symptoms) Trulicity 1.5 mg/0.5 mL pen injector 1.5 mg SUBCUT Q7D Rx Instructions: on baclofen 10 mg tablet 10 mg PO TID PRN (Reason: spasm) Flonase 50 mcg/actuation [place],Suspension 2 spray INTRANASAL DAILY PRN (Reason: Allergy Symptoms) Rx Instructions: administer into each nostril Discharge Orders: Discharge ED (Routine); Ordered 08/28/23 Ordered By: Sulaiman Blackmon Referrals: Yolanda Rodriguez DO [Primary Care Provider] - Discharge Diet: Usual diet Discharge Activity: Increase activity as tolerated Patient Instructions: Opioid Withdrawal (ED) Activity Restrictions/Additional Instructions: Take Ativan as prescribed. Follow-up with your primary care provider for further outpatient management. If you develop any new or concerning symptoms, please return to the emergency department as discussed. Imodium for any gastrointestinal issues. Coding Level of Care Code ED Electric Razor Assembler for Addis Valente
[2023-08-28] MEDS: LORazepam 1 mg Tablet PO (15:28)
[2023-08-28 15:38] VITALS: BP 138/86; PULSE 84; RESP 16; TEMP 37.1; O2SAT 97
== END 2023-08-28 15:30 | disposition home or self-care (01) ==
PROVIDERS: Emergency Provider Physician Assistant; PCP Family Medicine
DX: F11.23 Opioid dependence with withdrawal (principal); Z79.85 Long-term (current) use of injectable non-insulin antidiabetic drugs; E11.9 Type 2 diabetes mellitus without complications; F17.210 Nicotine dependence, cigarettes, uncomplicated
CPT/HCPCS: 99283

== ENCOUNTER 2023-08-30 11:53 | Emergency (ER) | payer SELFPAY ==
[2023-08-30 12:08] VITALS: BP 150/95; PULSE 88; RESP 20; TEMP 36.9; O2SAT 97; BMI 29.0
--- NOTE | 2023-08-30 12:19 | ED_ITS ---
HPI - General Adult General: Chief complaint: Psychiatric Symptoms Stated complaint: shaking, withdrawal, sent by [facility] Time Seen by Provider: 08/30/23 12:10 Source: patient Mode of arrival: ambulatory Limitations: no limitations History of Present Illness: Patient is a 42-year-old male presents to ED today with complaints of opiate withdrawal. Patient has a longstanding history of opiate use/abuse. He reportedly has not had opiates in over a week now. Patient was seen at our facility on 08/26 left AGAINST MEDICAL ADVICE. He returned on 08/27. Patient was treated with Ativan and given a prescription for this. Feels like this helped temporarily. He states his symptoms now are continued anxiety, feeling jittery on the inside, diarrhea, and muscle pains. Onset (ago): day(s) Pain Consistency: constant Exacerbating factors: other (opiate withdrawal) Associated symptoms: Reports nausea; Deny chest pain, dyspnea, headache(s), malaise, rash, palpitations or syncope Treatments prior to arrival: other (States he took Imodium and Zofran) Review of Systems Const: Reports: body aches; Denies: fever(s), chills, fatigue or malaise Eyes: Denies: change in vision, blurry vision, photophobia, floaters or seeing flashes Card: Denies: chest pain, palpitations, irregular heart rhythm, lightheadedness or syncope Resp: Denies: dyspnea GI: Reports: nausea and diarrhea Musc: Reports: other (reporting muscle pains/aches) Skin/Breast: Denies: rash Neuro: Denies: headache(s), numbness in extremities, weakness in extremities, sensory changes or dizziness Psych: Reports: anxiety; Denies: suicidal ideation or homicidal ideation PFS ED PFSH: Medical History Diabetes Hx of migraines Sleep apnea Headache Lumbar stenosis with neurogenic claudication Lumbar stenosis Facet arthropathy, lumbar Family History Other Cancer Diabetes Stroke Social History Smoking and tobacco/nicotine status: current every day tobacco/nicotine user (2 ciagarettes a day) Physical Exam Const: COMMON NORMALS: patient oriented x3, alert and well nourished GENERAL APPEARANCE: cooperative and anxious ORIENTATION/CONSCIOUSNESS: Yes awake, Yes oriented to person, Yes oriented to place and Yes oriented to time Neck/C-Spine: COMMON NORMALS: full ROM, no lymphadenopathy, supple and no meningeal signs Chest: COMMONS NORMALS: normal inspection of the chest Resp: COMMON NORMALS: normal respiratory effort and clear to auscultation bilaterally AUSCULTATION: clear to auscultation bilaterally Cardio: COMMON NORMALS: regular rate and regular rhythm RATE: regular rate RHYTHM: regular rhythm GI: COMMON NORMALS: Normal to inspection, nondistended, normoactive bowel sounds present, Soft to palpation, No hepatosplenomegaly present and no masses INSPECTION: Yes normal to inspection AUSCULTATION: Yes normoactive bowel sounds PALPATION: Yes Soft to palpation, Yes Tenderness to palpation present (GI) (mild-non surgical), No Guarding due to palpation present (GI), No Rigid due to palpation and Yes No hepatosplenomegaly present : COMMON NORMALS: Yes no CVA tenderness BLADDER/KIDNEY EXAM: Yes no CVA tenderness Back/Pelvis: COMMON NORMALS: no CVA tenderness and thoracic and lumbar spine normal to inspection Extremity: COMMON NORMALS: normal to inspection GENERAL: Yes normal exam except as noted Neuro: LILLY COMA SCALE: document GCS findings Lilly coma scale eye opening: Spontaneous Lilly coma scale verbal response: Orientated Lilly coma scale motor response: [place]bey commands [place] coma scale total score: 15 COMMON NORMALS: patient oriented x3, CN's II-XII intact bilaterally, moves all extremities, no focal motor deficits, no sensory deficits noted and gait normal SENSORIUM/ORIENTATION: Yes alert, Yes oriented to person, Yes oriented to place and Yes oriented to time MENINGEAL SIGNS: Yes no meningeal signs MOTOR EXAM: 5/5 motor strength present throughout Skin: COMMON NORMALS: no rashes or lesions noted GENERAL SKIN EXAM: no rashes or lesions noted Course Vital Signs: Vital signs: Vital Signs Temperature 98.5 F 08/30/23 12:08 Pulse Rate 88 08/30/23 12:08 Respiratory Rate 20 H 08/30/23 12:08 Blood Pressure 174/95 08/30/23 14:59 Pulse Oximetry 97 08/30/23 12:08 Oxygen Delivery Me thod Room Air 08/30/23 12:08 [facility] - General Adult Medical Decision Making Patient has had difficulty controlling his opiate withdrawal symptoms despite many medications. He is asking for Naltrexone, Suboxone, Methadone. When asked about his last opiate use he states he just removed his last Fentanyl patch on Wednesday (states it was 3 days past due/old). I explained the patient that we do not prescribe Suboxone or Methadone from the ED. Naltrexone usually requires an opiate free period for 7 to 14 days. I did discuss case with Dr. Springer who recommended placing patient on Seroquel and Clonidine. [facility] in [place] dispenses Suboxone and Methadone and does not require a referral. They have already closed today. He was given their address and phone number as well as their hours. Medical Records I reviewed the patient's medical records. No radiology studies performed this visit Discharge Plan Discharge Patient Disposition: Home Clinical Impression: Opiate withdrawal Condition: Stable Prescriptions: New Seroquel 25 mg tablet 25 - 50 mg PO .q4-6 Qty: 30 0RF Rx Instructions: until symptoms of withdrawal controlled or stopped clonidine HCl 0.1 mg tablet 0.1 mg PO Q6H PRN (Reason: withdrawal symptoms) Qty: 12 0RF No Action Farxiga 10 mg tablet 10 mg PO QAM ibuprofen 200 mg tablet 200 mg PO Q6H PRN (Reason: Pain) sildenafil 50 mg tablet 50 mg PO DAILY PRN (Reason: Erectile Dysfunction) ondansetron 8 mg tablet,disintegrating 8 mg PO Q8H PRN (Reason: Nausea And Vomiting) pantoprazole 40 mg tablet,delayed release (DR/EC) 40 mg PO DAILY testosterone cypionate 200 mg/mL oil 200 mg IM Q14D duloxetine 60 mg capsule,delayed release(DR/EC) 60 mg PO BID celecoxib 200 mg capsule 200 mg PO BID loratadine [Claritin] 10 mg Tablet 10 mg PO DAILY PRN (Reason: Allergy Symptoms) Trulicity 1.5 mg/0.5 mL pen injector 1.5 mg SUBCUT Q7D Rx Instructions: WEDNESDAY baclofen 10 mg tablet 10 mg PO TID PRN (Reason: spasm) lorazepam [Ativan] 1 mg tablet 1 mg PO Q6H Qty: 30 0RF Discharge Orders: Discharge ED (Routine); Ordered 08/30/23 Ordered By: Courtney Borjas Referrals: Yolanda Rodriguez DO [Primary Care Provider] - Patient Instructions: Opioid Withdrawal (ED), Narcotic Withdrawal (ED) Activity Restrictions/Additional Instructions: As discussed you may show up at the [facility] tomorrow at 6 AM when they open. Their address is [address] Their phone number is [phone]. They can start Suboxone/Methadone if indicated. I am placing you on 2 different medications are recommended by our inpatient psychiatrist to help with your opiate withdrawal symptoms. As we discussed the Clonidine can rapidly lower blood pressure. I would like you to take your blood pressure prior to administering 1 of these medications. If blood pressure is below 120/80 I do not want you taking this medication. Coding Level of Care Code ED Guillotine Operator for Addis Valente
[2023-08-30] MEDS: ketorolac 30 mg/mL INJ IVP (12:58)
[2023-08-30] MEDS: dicyclomine 10 mg Capsule PO (12:58)
[2023-08-30] MEDS: LORazepam 2 mg/mL INJ 10 mL MDV 1 MG IVP ×2 (12:59→16:03)
[2023-08-30] MEDS: orphenadrine 30 mg/mL Inj 2 mL 60 MG IVP (12:59)
[2023-08-30] MEDS: loperamide 2 mg Capsule 4 MG PO (13:37)
[2023-08-30] MEDS: diphenhydrAMINE 50 mg/mL SDV 1mL IVP (14:29)
[2023-08-30 14:59] VITALS: BP 174/95
[2023-08-30] MEDS: cloNIDine 0.1 mg Tablet 0.100000000000000006 MG PO ×2 (14:59→16:02)
[2023-08-30 16:02] VITALS: BP 162/81
[2023-08-30] MEDS: quetiapine 25 mg Tablet PO (16:03)
== END 2023-08-30 16:16 | disposition home or self-care (01) ==
PROVIDERS: Emergency Provider Physician Assistant; PCP Family Medicine
DX: F11.23 Opioid dependence with withdrawal (principal); Z79.85 Long-term (current) use of injectable non-insulin antidiabetic drugs; F17.210 Nicotine dependence, cigarettes, uncomplicated; E11.9 Type 2 diabetes mellitus without complications
CPT/HCPCS: 96374; 96375; 96376; 99284; J1200; J1885; J2060; J2360

== ENCOUNTER 2023-09-19 13:03 | Emergency (ER) | payer SELFPAY ==
[2023-09-19 13:14] VITALS: BP 143/95; PULSE 79; RESP 16; TEMP 36.7; O2SAT 97
[2023-09-19 13:33] LABS: Basophils # 0.1 10^3/uL (0.0-0.1); Basophils % 0.6 %; Eosinophils % 0.4 %; Hematocrit 52.6 % (37-53); Lymphocytes % 10.8 %; Mean Corpuscular HGB Conc 33.3 g/dL (30-55); Mean Corpuscular Volume 84.3 fl (82-101); Mean Platelet Volume 8.4 fL (7.4-10.4); Monocytes # 0.4 10^3/uL (0.2-0.9); Monocytes % 4.7 %; Neutrophils # 7.76 10^3/uL (1.8-7.7); Neutrophils % 83.3 %; Nucleated Red Blood Cells % 0 %; Platelet Count 233 10^3/cmm (157-399); Red Blood Count 6.24 10^6/uL (3.85-5.65); Red Cell Distribution Width 12.5 % (12.1-15.1); White Blood Count 9.33 10^3/uL (3.29-11.43)
[2023-09-19 13:52] LABS: Alanine Aminotransferase 21 U/L (0-41); Albumin Level 4.5 g/dL (3.5-5.2); Alkaline Phosphatase 68 U/L (40-130); Anion Gap 17.8 (5-19); Aspartate Amino Transferase 16 U/L (0-40); Blood Urea Nitrogen 17 mg/dL (6-20); Calcium 8.8 mg/dL (8.5-10.5); Carbon Dioxide 27 mmol/L (22-29); Chloride 100 mmol/L (98-107); Creatinine Clr Calc Pharmacy 134.2244; Globulin 3.2 g/dL (1.3-4.6); Glucose 173 mg/dL (65-115); Lipase 49 U/L (13-60); Osmolality Calculated 296 mOsm/kg (285-295); Potassium 4.8 mmol/L (3.5-5.1); Sodium 140 mmol/L (136-145); Total Bilirubin 1.3 mg/dL (0.15-1.2); Total Protein 7.7 g/dL (6.6-8.7)
--- NOTE | 2023-09-19 13:53 | CTR_ITS ---
PROCEDURE INFORMATION: Exam: CT Abdomen And Pelvis Without Contrast Exam date and time: 09/19/2023 2:02 PM Age: 42 years old Clinical indication: Abdominal pain; Flank; Other: Bilateral; Additional info: Bilat flank pain TECHNIQUE: Imaging protocol: Computed tomography of the abdomen and pelvis without contrast. Radiation optimization: All CT scans at this facility use at least one of these dose optimization techniques: automated exposure control; mA and/or kV adjustment per patient size (includes targeted exams where dose is matched to clinical indication); or iterative reconstruction. COMPARISON: CT abdomen pelvis w con* [id number] 06/23/2021 8:41 AM RADIATION DOSE METRICS: Total DLP (mGy-cm): 802.9 FINDINGS: Tubes, catheters and devices: Embolization coil along the left flank. Liver: Normal. No mass. Gallbladder and biliary ducts: Normal. No calcified stones. No ductal dilation. Pancreas: Normal. No ductal dilation. Spleen: Normal. No splenomegaly. Adrenal glands: Normal. No mass. Kidneys and ureters: Normal. No hydronephrosis. Exophytic right lower pole subcentimeter cyst too small to characterize any further. Stomach and bowel: Unremarkable. No obstruction. No mucosal thickening. Appendix: No evidence of appendicitis. Intraperitoneal space: Unremarkable. No free air. No significant fluid collection. Vasculature: Unremarkable. No abdominal aortic aneurysm. Lymph nodes: Unremarkable. No enlarged lymph nodes. Urinary bladder: Unremarkable as visualized. Reproductive: Unremarkable as visualized. Bones/joints: Unremarkable. No acute fracture. Soft tissues: Unremarkable. CT/CT kidney stone [id number] IMPRESSION: No hydronephrosis, or obstructing nephroureterolithiasis.
[2023-09-19 14:00] VITALS: BP 162/103; PULSE 96; RESP 16; O2SAT 96
--- NOTE | 2023-09-19 14:12 | W.ED.NAVMDI ---
HPI - Nausea/Vomiting/Diarrhea General: Chief complaint: Nausea/Vomiting/Diarrhea Stated complaint: vomitting, side pain Time Seen by Provider: 09/19/23 13:52 History of Present Illness: 42-year-old male patient comes in today for concerns of persistent nausea and vomiting x 1 week. Patient also reports some flank pain with this. Patient has a history of opiate use disorder and type 2 diabetes. Patient reports this illness started on last Wednesday seem to improve on Wednesday but then Wednesday through patient was ill again. Patient reports most of his symptoms are due to nausea and vomiting. Patient reports blood sugars been good at 132, patient does report some difficulty urinating. Patient has not noticed any blood in stool or vomitus. Associated nausea: Yes Associated symtoms: Reports nausea Review of Systems General: Reports: 10 or more systems reviewed and unremarkable except in HPI and below GI: Reports: nausea and vomiting [facility] ED PFSH: Medical History Diabetes Hx of migraines Sleep apnea Headache Lumbar stenosis with neurogenic claudication Lumbar stenosis Facet arthropathy, lumbar Family History Other Cancer Diabetes Stroke Social History Smoking and tobacco/nicotine status: current every day tobacco/nicotine user (2 ciagarettes a day) Physical Exam Const: COMMON NORMALS: alert HENMT: COMMON NORMALS: normocephalic HEAD & SCALP: normocephalic Neck/C-Spine: COMMON NORMALS: no lymphadenopathy Chest: COMMONS NORMALS: normal inspection of the chest Resp: COMMON NORMALS: normal respiratory effort and clear to auscultation bilaterally AUSCULTATION: clear to auscultation bilaterally Cardio: COMMON NORMALS: regular rate and regular rhythm RATE: regular rate RHYTHM: regular rhythm GI: COMMON NORMALS: Soft to palpation and non-tender PALPATION: Yes Soft to palpation : COMMON NORMALS: Yes no CVA tenderness BLADDER/KIDNEY EXAM: Yes no CVA tenderness Back/Pelvis: COMMON NORMALS: no CVA tenderness Extremity: COMMON NORMALS: full ROM Neuro: SENSORIUM/ORIENTATION: Yes alert Skin: COMMON NORMALS: turgor normal GENERAL SKIN EXAM: turgor normal Course Vital Signs: Vital signs: Vital Signs Temperature 98.1 F 09/19/23 13:14 Pulse Rate 79 09/19/23 13:14 Respiratory Rate 16 09/19/23 13:14 Blood Pressure 143/95 09/19/23 13:14 Pulse Oximetry 97 09/19/23 13:14 Oxygen Delivery Me thod Room Air 09/19/23 13:14 MDM - Nausea/Vomiting/Diarrhea Medical Decision Making 42-year-old male patient comes in today with flank pain and nausea vomiting x 1 week. Patient appears nontoxic. Abdomen soft with some generalized mild tenderness. Bowel sounds present. No CVA tenderness. Differential diagnosis includes not limited to malingering, dehydration, constipation, bowel obstruction, gastroparesis, diverticulitis, gastroenteritis, urinary tract infection, renal calculi. CBC, CMP, and urinalysis were unremarkable. Patient was given 2 L of IV fluid and Reglan and diphenhydramine, with improvement of symptoms. Believe patient most likely has some gastroparesis which is causing most of his nausea and vomiting. Review of the CT noted a distended stomach and some stool throughout the colon. Patient was recommended to take Reglan 4 times a day for the next 5 days and then as needed. Patient was recommended to follow-up with primary care. Patient was discussed to return to ER for worsening symptoms such as high fever, blood in vomit or stool. Lab Data 09/19/23 13:28 09/19/23 13:28 Radiology Impressions Abdomen/Pelvis CT 09/19/23 13:53 IMPRESSION: No hydronephrosis, or obstructing nephroureterolithiasis. Laboratory Results WBC 9.33 10^3/uL (3.29-11.43) 09/19/23 13:28 RBC 6.24 10^6/uL (3.85-5.65) H 09/19/23 13:28 Hgb 17.50 g/dL (11.27-16.99) H 09/19/23 13:28 Hct 52.6 % (37-53) 09/19/23 13:28 MCV 84.3 fl (82-101) 09/19/23 13:28 MCH 28.0 pg (27-33) 09/19/23 13:28 MCHC 33.3 g/dL (30-55) 09/19/23 13:28 RDW 12.5 % (12.1-15.1) 09/19/23 13:28 Plt Count 233 10^3/cmm (157-399) 09/19/23 13:28 MPV 8.4 fL (7.4-10.4) 09/19/23 13:28 Neut % (Auto) 83.3 % 09/19/23 13:28 Lymph % (Auto) 10.8 % 09/19/23 13:28 [place] % (Auto) 4.7 % 09/19/23 13:28 Eos % (Auto) 0.4 % 09/19/23 13:28 Baso % (Auto) 0.6 % 09/19/23 13:28 Neut # (Auto) 7.76 10^3/uL (1.8-7.7) H 09/19/23 13:28 Lymph # (Auto) 1.0 10^3/uL (0.8-4.8) 09/19/23 13:28 [place] # (Auto) 0.4 10^3/uL (0.2-0.9) 09/19/23 13:28 Eos # (Auto) 0.0 10^3/uL (0.0-0.8) 09/19/23 13:28 Baso # (Auto) 0.1 10^3/uL (0.0-0.1) 09/19/23 13:28 Nucleated RBC % (auto) 0 % 09/19/23 13:28 Nucleated RBCs # 0.0 /100WBC 09/19/23 13:28 Sodium 140 mmol/L (136-145) 09/19/23 13:28 Potassium 4.8 mmol/L (3.5-5.1) 09/19/23 13:28 Chloride 100 mmol/L (98-107) 09/19/23 13:28 Carbon Dioxide 27 mmol/L (22-29) 09/19/23 13:28 Anion Gap 17.8 (5-19) 09/19/23 13:28 BUN 17 mg/dL (6-20) 09/19/23 13:28 Creatinine 0.9 mg/dL (0.7-1.2) 09/19/23 13:28 GFR Calculation 93.0 mL/min (90-130) 09/19/23 13:28 Glucose 173 mg/dL (65-115) H 09/19/23 13:28 Calculated Osmolality 296 mOsm/kg (285-295) H 09/19/23 13:28 Calcium 8.8 mg/dL (8.5-10.5) 09/19/23 13:28 Total Bilirubin 1.3 mg/dL (0.15-1.2) H 09/19/23 13:28 AST 16 U/L (0-40) 09/19/23 13:28 ALT 21 U/L (0-41) 09/19/23 13:28 Alkaline Phosphatase 68 U/L (40-130) 09/19/23 13:28 Total Protein 7.7 g/dL (6.6-8.7) 09/19/23 13:28 Albumin 4.5 g/dL (3.5-5.2) 09/19/23 13:28 Globulin 3.2 g/dL (1.3-4.6) 09/19/23 13:28 Lipase 49 U/L (13-60) 09/19/23 13:28 Urine Color Dark yellow (Yellow) A 09/19/23 14:41 Urine Appearance Clear (CLEAR) 09/19/23 14:41 Urine pH 5 (5-7) 09/19/23 14:41 Ur Specific [place] 1.015 (1.005-1.030) 09/19/23 14:41 Urine Protein Neg (Negative) 09/19/23 14:41 Urine Glucose (UA) Norm (Normal) 09/19/23 14:41 Urine Ketones 1+ (Negative) H 09/19/23 14:41 Urine Blood Neg (Negative) 09/19/23 14:41 Urine Nitrate Negative (Negative) 09/19/23 14:41 Urine Bilirubin Neg (Negative) 09/19/23 14:41 Urine Urobilinogen 1 mg/dL (Negative) H 09/19/23 14:41 Ur Leukocyte Esterase Negative (Negative) 09/19/23 14:41 All radiology interpretation(s) finalized by discharge Discharge Plan Discharge Patient Disposition: Home Clinical Impression: Diabetic gastroparesis, Acute dehydration Condition: Stable Prescriptions: New metoclopramide HCl 10 mg tablet 10 mg PO Q6H PRN (Reason: nausea and vomiting) Qty: 30 0RF No Action Farxiga 10 mg tablet 10 mg PO QAM ibuprofen 200 mg tablet 200 mg PO Q6H PRN (Reason: Pain) sildenafil 50 mg tablet 50 mg PO DAILY PRN (Reason: Erectile Dysfunction) ondansetron 8 mg tablet,disintegrating 8 mg PO Q8H PRN (Reason: Nausea And Vomiting) pantoprazole 40 mg tablet,delayed release (DR/EC) 40 mg PO DAILY testosterone cypionate 200 mg/mL oil 200 mg IM Q14D duloxetine 60 mg capsule,delayed release(DR/EC) 60 mg PO BID Seroquel 25 mg tablet 25 - 50 mg PO .q4-6 Qty: 30 0RF Rx Instructions: until symptoms of withdrawal controlled or stopped clonidine HCl 0.1 mg tablet 0.1 mg PO Q6H PRN (Reason: withdrawal symptoms) Qty: 12 0RF celecoxib 200 mg capsule 200 mg PO BID loratadine [Claritin] 10 mg Tablet 10 mg PO DAILY PRN (Reason: Allergy Symptoms) Trulicity 1.5 mg/0.5 mL pen injector 1.5 mg SUBCUT Q7D Rx Instructions: WEDNESDAY baclofen 10 mg tablet 10 mg PO TID PRN (Reason: spasm) lorazepam [Ativan] 1 mg tablet 1 mg PO Q6H Qty: 30 0RF Discharge Orders: Discharge ED (Routine); Ordered 09/19/23 Ordered By: Herrera Meeks Referrals: Yolanda Rodriguez DO [Primary Care Provider] - Discharge Diet: Usual diet Discharge Activity: Increase activity as tolerated Patient Instructions: Gastroparesis (ED) Activity Restrictions/Additional Instructions: Continue with Reglan 4 times a day for the next 5 days and then as needed. Follow-up with primary care for further instructions. Return to ED for worsening symptoms such as fever greater than 100.4, or blood in vomit or stool. Coding Level of Care Code ED Bulk Sealer for Addis Valente
[2023-09-19 14:30] VITALS: BP 155/81; PULSE 79; O2SAT 98
[2023-09-19] MEDS: sodium chloride 0.9% 1,000 ML 999 ML IV ×2 (14:31)
[2023-09-19] MEDS: metoclopramide 5 mg/mL SDV 2 mL 10 MG IVP (14:32)
[2023-09-19] MEDS: diphenhydrAMINE 50 mg/mL SDV 1mL 25 MG IVP (14:32)
[2023-09-19 14:49] LABS: Add Urine Microscopic? NO; Charge for UA Resulting for Rev
[2023-09-19 15:00] VITALS: BP 134/78; PULSE 78; RESP 17; O2SAT 95
[2023-09-19 15:23] LABS: Bilirubin Urine Neg (Negative); Blood Urine Neg (Negative); Glucose Urine UA Norm (Normal); Ketones Urine 1+ (Negative); Leukocyte Esterase Urine Negative (Negative); Nitrate Urine Negative (Negative); Protein Urine Neg (Negative); Specific Gravity, Urine 1.015 (1.005-1.030); Urine Appearance Clear (CLEAR); Urine Color Dark Yellow (Yellow); Urobilinogen Urine 1 mg/dL (Negative); pH Urine 5 (5-7)
[2023-09-19 15:30] VITALS: BP 141/86; PULSE 85; RESP 17; O2SAT 98
== END 2023-09-19 15:45 | disposition home or self-care (01) ==
PROVIDERS: Emergency Medicine; Emergency Provider Nurse Practitioner Family; PCP Family Medicine
DX: E11.43 Type 2 diabetes mellitus with diabetic autonomic (poly)neuropathy (principal); K31.84 Gastroparesis; E86.0 Dehydration; Z79.899 Other long term (current) drug therapy; Z79.85 Long-term (current) use of injectable non-insulin antidiabetic drugs; F17.210 Nicotine dependence, cigarettes, uncomplicated
CPT/HCPCS: 36415; 74176; 80053; 81003; 83690; 85025; 96361; 96374; 96375; 99285; J1200; J2765; J7030

== ENCOUNTER 2023-09-20 11:02 | Emergency (ER) | payer SELFPAY ==
[2023-09-20] VITALS (23 sets, daily range): BP systolic 138–147; BP diastolic 82–91; PULSE 71–90; RESP 10–26; TEMP 36.9; O2SAT 95–100; BMI 29.0
--- NOTE | 2023-09-20 12:05 | ED_ITS ---
HPI - Anxiety 2 General: Chief Complaint: Anxiety Stated Complaint: anxiety attack Time Seen by Provider: 09/20/23 12:01 Source: patient Mode of arrival: ambulatory History of Present Illness: 42-year-old male presents to the emergen cy room with complaint of opiate withdrawal. He stopped taking opiates several weeks ago he is currently on Suboxone he feels very anxious somewhat nausea. 3 weeks ago he was here for similar complaint and was discharged home with Ativan. He was seen yesterday as laboratory studies are unremarkable and his CT was also negative. He has not had any fever sweats chills no hemoptysis no hematemesis no coffee-ground emesis no hematochezia or melena. complaint: anxiety History of similar episodes: Yes Relieving factors: nothing Exacerbating factors: nothing Associated symptoms: Reports nausea; Deny chest pain, chills or fever(s) Review of Systems 2 Const: Denies: fever(s) or chills Card: Denies: chest pain Resp: Denies: dyspnea GI: Reports: nausea; Denies: abdominal pain : Denies: dysuria, urinary frequency or urinary urgency Musc: Denies: neck pain or back pain Skin/Breast: Denies: rash Psych: Reports: anxiety PFSH ED 2 PFSH: Medical History Diabetes Hx of migraines Sleep apnea Headache Lumbar stenosis with neurogenic claudication Lumbar stenosis Facet arthropathy, lumbar Family History Other Cancer Diabetes Stroke Social History Smoking and tobacco/nicotine status: current every day tobacco/nicotine user (2 ciagarettes a day) Physical Exam 2 Const: COMMON NORMALS: no acute distress GENERAL APPEARANCE: cooperative and comfortable ORIENTATION/CONSCIOUSNESS: Yes awake, Yes oriented to person, Yes oriented to place and Yes oriented to time HENMT: COMMON NORMALS: normocephalic, atraumatic and hearing grossly normal bilaterally HEAD & SCALP: normocephalic and atraumatic Resp: COMMON NORMALS: normal respiratory effort, No retractions, No use of accessory muscles and clear to auscultation bilaterally AUSCULTATION: clear to auscultation bilaterally Cardio: COMMON NORMALS: regular rate, regular rhythm and No murmurs present (Cardio) RATE: regular rate RHYTHM: regular rhythm GI: COMMON NORMALS: Soft to palpation and No hepatosplenomegaly present A USCULTATION: Yes normoactive bowel sounds PALPATION: Yes Soft to palpation, No Tenderness to palpation present (GI), No Guarding due to palpation present (GI) and Yes No hepatosplenomegaly present Extremity: COMMON NORMALS: normal to inspection, capillary refill normal, no clubbing, cyanosis or edema, no calf tenderness and no pedal edema Neuro: SENSORIUM/ORIENTATION: Yes oriented to person, Yes oriented to place and Yes oriented to time Skin: COMMON NORMALS: no rashes or lesions noted GENERAL SKIN EXAM: no rashes or lesions noted Course 2 Vital Signs: Vital signs: Vital Signs Temperature 98.5 F 09/20/23 11:18 Pulse Rate 76 09/20/23 14:00 Respiratory Rate 15 09/20/23 14:00 Blood Pressure 140/91 09/20/23 14:00 Pulse Oximetry 98 09/20/23 13:55 Oxygen Delivery Me thod Room Air 09/20/23 13:20 MDM - Anxiety Medical Decision Making Patient here complaining of withdrawing from narcotics he was here about 3 weeks ago with a similar complaint at that time he was discharged home with Ativan. He was seen yesterday that note was reviewed he did repeat his labs no significant findings CT from yesterday was reviewed as well. His abdominal exam today is benign. Will discharge patient home with hydroxyzine and encouraged him to follow-up with his primary care doctor or consider establishing with [facility] [place] for help. He should continue with all of his previously prescribed medications continue the Suboxone as prescribed. Patient specifically requested Ativan discussed with him that we would not be able to do that from an ER setting. Medical Records I reviewed the patient's medical records. Lab Data I reviewed the patient's lab results. 09/20/23 12:38 09/20/23 12:38 Laboratory Results WBC 11.70 10^3/uL (3.29-11.43) H 09/20/23 12:38 RBC 6.11 10^6/uL (3.85-5.65) H 09/20/23 12:38 Hgb 17.70 g/dL (11.27-16.99) H 09/20/23 12:38 Hct 51.0 % (37-53) 09/20/23 12:38 MCV 83.5 fl (82-101) 09/20/23 12:38 MCH 29.0 pg (27-33) 09/20/23 12:38 MCHC 34.7 g/dL (30-55) 09/20/23 12:38 RDW 12.4 % (12.1-15.1) 09/20/23 12:38 Plt Count 240 10^3/cmm (157-399) 09/20/23 12:38 MPV 8.7 fL (7.4-10.4) 09/20/23 12:38 Neut % (Auto) 88.4 % 09/20/23 12:38 Lymph % (Auto) 7.1 % 09/20/23 12:38 [place] % (Auto) 3.7 % 09/20/23 12:38 Eos % (Auto) 0.1 % 09/20/23 12:38 Baso % (Auto) 0.4 % 09/20/23 12:38 Neut # (Auto) 10.34 10^3/uL (1.8-7.7) H 09/20/23 12:38 Lymph # (Auto) 0.8 10^3/uL (0.8-4.8) 09/20/23 12:38 [place] # (Auto) 0.4 10^3/uL (0.2-0.9) 09/20/23 12:38 Eos # (Auto) 0.0 10^3/uL (0.0-0.8) 09/20/23 12:38 Baso # (Auto) 0.1 10^3/uL (0.0-0.1) 09/20/23 12:38 Nucleated RBC % (auto) 0 % 09/20/23 12:38 Nucleated RBCs # 0.0 /100WBC 09/20/23 12:38 Sodium 139 mmol/L (136-145) 09/20/23 12:38 Potassium 4.5 mmol/L (3.5-5.1) 09/20/23 12:38 Chloride 101 mmol/L (98-107) 09/20/23 12:38 Carbon Dioxide 28 mmol/L (22-29) 09/20/23 12:38 Anion Gap 14.5 (5-19) 09/20/23 12:38 BUN 16 mg/dL (6-20) 09/20/23 12:38 Creatinine 0.7 mg/dL (0.7-1.2) 09/20/23 12:38 GFR Calculation 124.3 mL/min (90-130) 09/20/23 12:38 Glucose 186 mg/dL (65-115) H 09/20/23 12:38 Calculated Osmolality 294 mOsm/kg (285-295) 09/20/23 12:38 Calcium 9.1 mg/dL (8.5-10.5) 09/20/23 12:38 Total Bilirubin 1.3 mg/dL (0.15-1.2) H 09/20/23 12:38 AST 19 U/L (0-40) 09/20/23 12:38 ALT 20 U/L (0-41) 09/20/23 12:38 Alkaline Phosphatase 67 U/L (40-130) 09/20/23 12:38 Total Protein 8.1 g/dL (6.6-8.7) 09/20/23 12:38 Albumin 4.7 g/dL (3.5-5.2) 09/20/23 12:38 Globulin 3.4 g/dL (1.3-4.6) 09/20/23 12:38 Urine Color Yellow (Yellow) 09/20/23 14:00 Urine Appearance Clear (CLEAR) 09/20/23 14:00 Urine pH 5 (5-7) 09/20/23 14:00 Ur Specific [place] 1.015 (1.005-1.030) 09/20/23 14:00 Urine Protein Neg (Negative) 09/20/23 14:00 Urine Glucose (UA) Norm (Normal) 09/20/23 14:00 Urine Ketones Negative (Negative) 09/20/23 14:00 Urine Blood Neg (Negative) 09/20/23 14:00 Urine Nitrate Negative (Negative) 09/20/23 14:00 Urine Bilirubin Neg (Negative) 09/20/23 14:00 Urine Urobilinogen Norm mg/dL (Negative) 09/20/23 14:00 Ur Leukocyte Esterase Negative (Negative) 09/20/23 14:00 No radiology studies performed this visit Discharge Plan Discharge Patient Disposition: Home Clinical Impression: Anxiety Condition: Stable Prescriptions: New hydroxyzine HCl 25 mg tablet 25 mg PO Q8H PRN (Reason: nausea and vomiting/anxiety) Qty: 15 0RF No Action Farxiga 10 mg tablet 10 mg PO QAM ibuprofen 200 mg tablet 200 mg PO Q6H PRN (Reason: Pain) sildenafil 50 mg tablet 50 mg PO DAILY PRN (Reason: Erectile Dysfunction) ondansetron 8 mg tablet,disintegrating 8 mg PO Q8H PRN (Reason: Nausea And Vomiting) pantoprazole 40 mg tablet,delayed release (DR/EC) 40 mg PO DAILY testosterone cypionate 200 mg/mL oil 200 mg IM Q14D duloxetine 60 mg capsule,delayed release(DR/EC) 60 mg PO BID Seroquel 25 mg tablet 25 - 50 mg PO .q4-6 Qty: 30 0RF Rx Instructions: until symptoms of withdrawal controlled or stopped clonidine HCl 0.1 mg tablet 0.1 mg PO Q6H PRN (Reason: withdrawal symptoms) Qty: 12 0RF metoclopramide HCl 10 mg tablet 10 mg PO Q6H PRN (Reason: nausea and vomiting) Qty: 30 0RF celecoxib 200 mg capsule 200 mg PO BID loratadine [Claritin] 10 mg Tablet 10 mg PO DAILY PRN (Reason: Allergy Symptoms) Trulicity 1.5 mg/0.5 mL pen injector 1.5 mg SUBCUT Q7D Rx Instructions: WEDNESDAY baclofen 10 mg tablet 10 mg PO TID PRN (Reason: spasm) lorazepam [Ativan] 1 mg tablet 1 mg PO Q6H Qty: 30 0RF Discharge Orders: Discharge ED (Routine); Ordered 09/20/23 Ordered By: Alexandr Ma Referrals: Yolanda Rodirguez DO [Primary Care Provider] - Discharge Diet: Usual diet Discharge Activity: Resume usual activity Patient Instructions: Opioid Safety, Pain Management Activity Restrictions/Additional Instructions: Thank you for choosing [facility] for your healthcare needs today. It is very important that you follow up as instructed or that you return to the Emergency Department should you have concerns or if your condition changes or worsens in any way. You are seen today with complaints of anxiety as well as nausea. Your laboratory test were not significantly abnormal urine was normal reviewed the CT that was done yesterday. Based on your exam repeat CT is not necessary. Recommend using the hydroxyzine as needed either for anxiety or nausea I will help with both. Follow-up with your primary care provider. Continue other previously prescribed medications. Coding Level of Care Code ED Home Health Occupational Therapist for Addis Valente
[2023-09-20 12:43] LABS: Basophils # 0.1 10^3/uL (0.0-0.1); Basophils % 0.4 %; Eosinophils % 0.1 %; Lymphocytes # 0.8 10^3/uL (0.8-4.8); Lymphocytes % 7.1 %; Mean Corpuscular HGB Conc 34.7 g/dL (30-55); Mean Corpuscular Volume 83.5 fl (82-101); Mean Platelet Volume 8.7 fL (7.4-10.4); Monocytes # 0.4 10^3/uL (0.2-0.9); Monocytes % 3.7 %; Neutrophils # 10.34 10^3/uL (1.8-7.7); Neutrophils % 88.4 %; Nucleated Red Blood Cells % 0 %; Platelet Count 240 10^3/cmm (157-399); Red Blood Count 6.11 10^6/uL (3.85-5.65); Red Cell Distribution Width 12.4 % (12.1-15.1)
[2023-09-20] MEDS: hyDROXYzine 25 mg Capsule PO (12:52)
[2023-09-20] MEDS: sodium chloride 0.9% 1,000 ML 999 ML IV (12:53)
[2023-09-20 13:00] LABS: Alanine Aminotransferase 20 U/L (0-41); Albumin Level 4.7 g/dL (3.5-5.2); Alkaline Phosphatase 67 U/L (40-130); Anion Gap 14.5 (5-19); Aspartate Amino Transferase 19 U/L (0-40); Blood Urea Nitrogen 16 mg/dL (6-20); Calcium 9.1 mg/dL (8.5-10.5); Carbon Dioxide 28 mmol/L (22-29); Chloride 101 mmol/L (98-107); Creatinine Clr Calc Pharmacy 172.5743; Globulin 3.4 g/dL (1.3-4.6); Glomerular Filtration Rate 124.3 mL/min (90-130); Glucose 186 mg/dL (65-115); Osmolality Calculated 294 mOsm/kg (285-295); Potassium 4.5 mmol/L (3.5-5.1); Sodium 139 mmol/L (136-145); Total Bilirubin 1.3 mg/dL (0.15-1.2); Total Protein 8.1 g/dL (6.6-8.7)
[2023-09-20 14:13] LABS: Add Urine Microscopic? NO; Bilirubin Urine Neg (Negative); Blood Urine Neg (Negative); Glucose Urine UA Norm (Normal); Ketones Urine Negative (Negative); Leukocyte Esterase Urine Negative (Negative); Nitrate Urine Negative (Negative); Protein Urine Neg (Negative); Specific Gravity, Urine 1.015 (1.005-1.030); Urine Appearance Clear (CLEAR); Urine Color Yellow (Yellow); Urobilinogen Urine Norm (Negative); pH Urine 5 (5-7)
[2023-09-20 14:14] LABS: Charge for UA Resulting for Rev
--- NOTE | 2023-09-20 14:32 | ED_ITS ---
HPI - Anxiety 2 General: Chief Complaint: Anxiety Stated Complaint: anxiety attack Time Seen by Provider: 09/20/23 12:01 Source: patient Mode of arrival: ambulatory History of Present Illness: 42-year-old male presents emergency room with complaints of nausea and vomiting for the last week. He was seen yesterday with similar complaint labs and CT were done and these were reviewed today. Denies any medic easy melena hematemesis calf cramps no dysuria urgency or frequency. He was seen for the similar complaint on August 27. He is currently on Suboxone. MD complaint: anxiety Relieving factors: nothing Exacerbating factors: nothing Associated symptoms: Deny anorexia, chest pain, chills, confusion, diaphoresis, fever(s), headache(s), malaise, nausea, palpitations, short of breath, syncope, vomiting or weakness Review of Systems 2 Const: Denies: fever(s), chills, malaise or diaphoresis Card: Denies: chest pain, palpitations or syncope Resp: Denies: dyspnea GI: Denies: abdominal pain, nausea or vomiting : Denies: dysuria, urinary frequency or urinary urgency Musc: Denies: neck pain or back pain Skin/Breast: Denies: rash Neuro: Denies: headache(s) or confusion PFSH ED 2 PFSH: Medical History Diabetes Hx of migraines Sleep apnea Headache Lumbar stenosis with neurogenic claudication Lumbar stenosis Facet arthropathy, lumbar Family History Other Cancer Diabetes Stroke Social History Smoking and tobacco/nicotine status: current every day tobacco/nicotine user (2 ciagarettes a day) Physical Exam 2 Const: COMMON NORMALS: no acute distress GENERAL APPEARANCE: cooperative and comfortable ORIENTATION/CONSCIOUSNESS: Yes awake, Yes oriented to person, Yes oriented to place and Yes oriented to time HENMT: COMMON NORMALS: normocephalic, atraumatic and hearing grossly normal bilaterally HEAD & SCALP: normocephalic and atraumatic Resp: COMMON NORMALS: normal respiratory effort, No retractions, No use of accessory muscles and clear to auscultation bilaterally AUSCULTATION: clear to auscultation bilaterally Cardio: COMMON NORMALS: regular rate, regular rhythm and No murmurs present (Cardio) RATE: regular rate RHYTHM: regular rhythm GI: COMMON NORMALS: Soft to palpation and No hepatosplenomegaly present A USCULTATION: Yes normoactive bowel sounds PALPATION: Yes Soft to palpation, No Tenderness to palpation present (GI), No Guarding due to palpation present (GI) and Yes No hepatosplenomegaly present Extremity: COMMON NORMALS: normal to inspection, capillary refill normal, no clubbing, cyanosis or edema, no calf tenderness and no pedal edema Neuro: SENSORIUM/ORIENTATION: Yes oriented to person, Yes oriented to place and Yes oriented to time Skin: COMMON NORMALS: no rashes or lesions noted GENERAL SKIN EXAM: no rashes or lesions noted Course 2 Vital Signs: Vital signs: Vital Signs Temperature 98.5 F 09/20/23 11:18 Pulse Rate 76 09/20/23 14:00 Respiratory Rate 15 09/20/23 14:00 Blood Pressure 140/91 09/20/23 14:00 Pulse Oximetry 98 09/20/23 13:55 Oxygen Delivery Me thod Room Air 09/20/23 13:20 MDM - Anxiety Lab Data 09/20/23 12:38 09/20/23 12:38 Laboratory Results WBC 11.70 10^3/uL (3.29-11.43) H 09/20/23 12:38 RBC 6.11 10^6/uL (3.85-5.65) H 09/20/23 12:38 Hgb 17.70 g/dL (11.27-16.99) H 09/20/23 12:38 Hct 51.0 % (37-53) 09/20/23 12:38 MCV 83.5 fl (82-101) 09/20/23 12:38 MCH 29.0 pg (27-33) 09/20/23 12:38 MCHC 34.7 g/dL (30-55) 09/20/23 12:38 RDW 12.4 % (12.1-15.1) 09/20/23 12:38 Plt Count 240 10^3/cmm (157-399) 09/20/23 12:38 MPV 8.7 fL (7.4-10.4) 09/20/23 12:38 Neut % (Auto) 88.4 % 09/20/23 12:38 Lymph % (Auto) 7.1 % 09/20/23 12:38 [place] % (Auto) 3.7 % 09/20/23 12:38 Eos % (Auto) 0.1 % 09/20/23 12:38 Baso % (Auto) 0.4 % 09/20/23 12:38 Neut # (Auto) 10.34 10^3/uL (1.8-7.7) H 09/20/23 12:38 Lymph # (Auto) 0.8 10^3/uL (0.8-4.8) 09/20/23 12:38 [place] # (Auto) 0.4 10^3/uL (0.2-0.9) 09/20/23 12:38 Eos # (Auto) 0.0 10^3/uL (0.0-0.8) 09/20/23 12:38 Baso # (Auto) 0.1 10^3/uL (0.0-0.1) 09/20/23 12:38 Nucleated RBC % (auto) 0 % 09/20/23 12:38 Nucleated RBCs # 0.0 /100WBC 09/20/23 12:38 Sodium 139 mmol/L (136-145) 09/20/23 12:38 Potassium 4.5 mmol/L (3.5-5.1) 09/20/23 12:38 Chloride 101 mmol/L (98-107) 09/20/23 12:38 Carbon Dioxide 28 mmol/L (22-29) 09/20/23 12:38 Anion Gap 14.5 (5-19) 09/20/23 12:38 BUN 16 mg/dL (6-20) 09/20/23 12:38 Creatinine 0.7 mg/dL (0.7-1.2) 09/20/23 12:38 GFR Calculation 124.3 mL/min (90-130) 09/20/23 12:38 Glucose 186 mg/dL (65-115) H 09/20/23 12:38 Calculated Osmolality 294 mOsm/kg (285-295) 09/20/23 12:38 Calcium 9.1 mg/dL (8.5-10.5) 09/20/23 12:38 Total Bilirubin 1.3 mg/dL (0.15-1.2) H 09/20/23 12:38 AST 19 U/L (0-40) 09/20/23 12:38 ALT 20 U/L (0-41) 09/20/23 12:38 Alkaline Phosphatase 67 U/L (40-130) 09/20/23 12:38 Total Protein 8.1 g/dL (6.6-8.7) 09/20/23 12:38 Albumin 4.7 g/dL (3.5-5.2) 09/20/23 12:38 Globulin 3.4 g/dL (1.3-4.6) 09/20/23 12:38 Urine Color Yellow (Yellow) 09/20/23 14:00 Urine Appearance Clear (CLEAR) 09/20/23 14:00 Urine pH 5 (5-7) 09/20/23 14:00 Ur Specific [place] 1.015 (1.005-1.030) 09/20/23 14:00 Urine Protein Neg (Negative) 09/20/23 14:00 Urine Glucose (UA) Norm (Normal) 09/20/23 14:00 Urine Ketones Negative (Negative) 09/20/23 14:00 Urine Blood Neg (Negative) 09/20/23 14:00 Urine Nitrate Negative (Negative) 09/20/23 14:00 Urine Bilirubin Neg (Negative) 09/20/23 14:00 Urine Urobilinogen Norm mg/dL (Negative) 09/20/23 14:00 Ur Leukocyte Esterase Negative (Negative) 09/20/23 14:00 Discharge Plan Discharge Patient Disposition: Home Clinical Impression: Anxiety Condition: Stable Prescriptions: New hydroxyzine HCl 25 mg tablet 25 mg PO Q8H PRN (Reason: nausea and vomiting/anxiety) Qty: 15 0RF No Action Farxiga 10 mg tablet 10 mg PO QAM ibuprofen 200 mg tablet 200 mg PO Q6H PRN (Reason: Pain) sildenafil 50 mg tablet 50 mg PO DAILY PRN (Reason: Erectile Dysfunction) ondansetron 8 mg tablet,disintegrating 8 mg PO Q8H PRN (Reason: Nausea And Vomiting) pantoprazole 40 mg tablet,delayed release (DR/EC) 40 mg PO DAILY testosterone cypionate 200 mg/mL oil 200 mg IM Q14D duloxetine 60 mg capsule,delayed release(DR/EC) 60 mg PO BID Seroquel 25 mg tablet 25 - 50 mg PO .q4-6 Qty: 30 0RF Rx Instructions: until symptoms of withdrawal controlled or stopped clonidine HCl 0.1 mg tablet 0.1 mg PO Q6H PRN (Reason: withdrawal symptoms) Qty: 12 0RF metoclopramide HCl 10 mg tablet 10 mg PO Q6H PRN (Reason: nausea and vomiting) Qty: 30 0RF celecoxib 200 mg capsule 200 mg PO BID loratadine [Claritin] 10 mg Tablet 10 mg PO DAILY PRN (Reason: Allergy Symptoms) Trulicity 1.5 mg/0.5 mL pen injector 1.5 mg SUBCUT Q7D Rx Instructions: WEDNESDAY baclofen 10 mg tablet 10 mg PO TID PRN (Reason: spasm) lorazepam [Ativan] 1 mg tablet 1 mg PO Q6H Qty: 30 0RF Discharge Orders: Discharge ED (Routine); Ordered 09/20/23 Ordered By: Alexandr Ma Referrals: Yolanda Rodriguez, [Primary Care Provider] - Discharge Diet: Usual diet Discharge Activity: Resume usual activity Patient Instructions: Opioid Safety, Pain Management Activity Restrictions/Additional Instructions: Thank you for choosing [facility] for your healthcare needs today. It is very important that you follow up as instructed or that you return to the Emergency Department should you have concerns or if your condition changes or worsens in any way. You are seen today with complaints of anxiety as well as nausea. Your laboratory test were not significantly abnormal urine was normal reviewed the CT that was done yesterday. Based on your exam repeat CT is not necessary. Recommend using the hydroxyzine as needed either for anxiety or nausea I will help with both. Follow-up with your primary care provider. Continue other previously prescribed medications. Coding Level of Care Code ED [employer] for [employer]
== END 2023-09-20 14:37 | disposition home or self-care (01) ==
PROVIDERS: Emergency Provider Family Medicine; PCP Family Medicine
DX: F41.9 Anxiety disorder, unspecified (principal); Z79.85 Long-term (current) use of injectable non-insulin antidiabetic drugs; E11.9 Type 2 diabetes mellitus without complications; F17.210 Nicotine dependence, cigarettes, uncomplicated
CPT/HCPCS: 36415; 80053; 81003; 85025; 99284; J7030

== ENCOUNTER 2024-03-09 10:27 | Outpatient (CLI) | payer OTHER, SELFPAY ==
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
== END 2024-03-09 10:28 | disposition home or self-care (01) ==
PROVIDERS: PCP Family Medicine; Visit Provider Family Medicine
DX: S86.911A Strain of unspecified muscle(s) and tendon(s) at lower leg level, right leg, initial encounter (principal); V09.9XXA Pedestrian injured in unspecified transport accident, initial encounter
CPT/HCPCS: 73562

== ENCOUNTER → 2024-03-21 09:36 | Outpatient (BNVA) | payer OTHER, SELFPAY | PROVIDERS: PCP Family Medicine; Referring Provider Family Medicine; Visit Provider Anesthesiology Pain Medicine | DX: M47.892 Other spondylosis, cervical region (principal); M54.2 Cervicalgia | CPT/HCPCS: 72040 ==

== ENCOUNTER → 2024-04-04 14:30 | Outpatient (BNVA) | payer OTHER, SELFPAY | PROVIDERS: PCP Family Medicine; Visit Provider Physician Assistant | DX: M25.561 Pain in right knee (principal); S89.91XA Unspecified injury of right lower leg, initial encounter; W20.8XXA Other cause of strike by thrown, projected or falling object, initial encounter | CPT/HCPCS: 73560; 73565 ==